=== PATIENT | female | born 1960 | race Caucasian/White ===

== ENCOUNTER 2017-10-26 08:25 | Emergency (ER) | END 2017-10-26 11:55 | disposition home or self-care (01) ==

== ENCOUNTER 2018-05-27 09:57 | Emergency (ER) | END 2018-05-27 12:20 | disposition home or self-care (01) ==

== ENCOUNTER 2018-08-02 18:11 | Emergency (ER) | END 2018-08-02 18:45 | disposition left against medical advice (07) ==

== ENCOUNTER 2018-09-07 18:09 | Emergency (ER) | payer OTHER ==
[~2018-09-07] VITALS: Ht 152.4 cm; Wt 84.9 kg
[~2018-09-07 18:09] MED LIST: ACET1TAB40 PO; ALBU8.5H8 INH; AZIT250T PO; CEPH-443 PO; IBUP-1542 PO; IBUP-40 PO; LORA-441 PO; PRED20TA PO
[2018-09-07 18:16] VITALS: Ht 152.4 cm; Wt 84.9 kg
[2018-09-07] MEDS ORDERED: AZIT250T PO (22:41)
[2018-09-07] MEDS ORDERED: ALBU8.5H8 INH (22:41)
[2018-09-07] MEDS ORDERED: PRED20TA PO (22:41)
[2018-09-07] MEDS ORDERED: D-ME473S2 PO (22:41)
[2018-09-07 22:59] VITALS: BP 133/62; PULSE 60; RESP 18
--- NOTE | 2018-09-07 23:03 | ERD ---
ER Documentation Chief Complaint Chief Complaint cough x4days HPI This is a 57-year-old female denies significant past medical history presents ED with complaints of cough times 4 days. Patient admits to sputum production, fatigue and chest discomfort with prolonged coughing spells. Denies body aches, shortness breath, trouble breathing, fevers, nausea, vomiting, diarrhea, constipation or other symptoms. No known drug allergies. ROS All systems reviewed and are negative except as per history of present illness. Medications Home Meds Active Scripts Azithromycin* (Zithromax*) 250 Mg Tablet, 250 MG PO .ZPACK DIRECTED, #6 TAB TAKE 500 MG (2 TABS) THE FIRST DAY THEN 250 MG (1 TAB) DAYS 2-5 Prov:DYANA DAVENPORT PA-C 09/07/18 Prednisone* (Prednisone*) 20 Mg Tab, 40 MG PO DAILY for 4 Days, TAB Prov:DYANA DAVENPORT PA-C 09/07/18 Albuterol Sulfate* (Proair HFA*) 8.5 Gm Hfa.aer.ad, 2 PUFF INH Q4, #1 INHALER Prov:DYANA DAVENPORT PA-C 09/07/18 Dextromethorphan Hb-Promethazine Hcl* (Promethazine DM* Syrup) 473 Ml Syrup, 5 ML PO Q6 PRN for COUGH for 5 Days, ML Prov:DYANA DAVENPORT PA-C 09/07/18 Lorazepam* (Ativan*) 0.5 Mg Tablet, 0.5 MG PO Q8, #10 TAB Prov:BLESSING LONGORIA MD 05/27/18 Prednisone* (Prednisone*) 20 Mg Tab, 40 MG PO DAILY for 5 Days, TAB Prov:RENITA ABREU MD 10/26/17 Albuterol Sulfate* (Proair HFA*) 8.5 Gm Hfa.aer.ad, 2 PUFF INH Q4, #1 INHALER Prov:RENITA ABREU MD 10/26/17 Azithromycin* (Zithromax*) 250 Mg Tablet, 250 MG PO .ZPACK DIRECTED, #6 TAB TAKE 500 MG (2 TABS) THE FIRST DAY THEN 250 MG (1 TAB) DAYS 2-5 Prov:RENITA ABREU MD 3/13/18 Ibuprofen* (Ibuprofen*) 600 Mg Tablet, 600 MG PO Q6 for PAIN, #20 TAB Prov:INDIANA CHAMPAGNE 09/30/15 Acetaminophen-Codeine* (Acetaminophen-Cod #3*) 300-30 Mg Tab, 1 TAB PO Q4H PRN for PAIN, #10 TAB Prov:RENITA ABREU MD 08/06/15 Ibuprofen* (Motrin*) 600 Mg Tab, 600 MG PO Q6, #14 TAB Prov:RENITA ABREU MD 08/06/15 Cephalexin* (Keflex*) 500 Mg Capsule, 500 MG PO QID for 7 Days, CAP Prov:RENITA ABREU MD 08/06/15 Reported Medications Ibuprofen (Advil) 200 Mg Tablet, 400 MG PO Q6 07/03/12 Allergies Allergies: Coded Allergies: No Known Allergy (Unverified , 10/26/17) PMhx/Soc Medical and Surgical Hx: pt denies Medical Hx, pt denies Surgical Hx History of Surgery: No Anesthesia Reaction: No Hx Neurological Disorder: No Hx Respiratory Disorders: No Hx Cardiac Disorders: No Hx Psychiatric Problems: No Hx Miscellaneous Medical Probl: No Hx Alcohol Use: No Hx Substance Use: No Hx Tobacco Use: No FmHx Family History: No diabetes Physical Exam Vitals Vital Signs Date Temp Pulse Resp B/P (MAP) Pulse Ox O2 O2 Flow FiO2 Time Delivery Rate 09/07/18 98.0 60 18 133/62 96 Room Air 22:59 (85) 09/07/18 98.2 72 20 128/68 100 18:16 (88) Physical Exam Physical Exam Vitals signs: Reviewed by me. General: Well developed, well nourished, in no acute distress. Patient is awake and alert. Head: Normocephalic, atraumatic. Eyes: Normal conjunctiva, Pupils PERRLA, EOM intact grossly ENT: Pharynx is clear, Moist mucous membranes, external ears, nose and mouth normal Neck: Supple, no masses, lymphadenopathy or JVD Respiratory: Clear to auscultation bilaterally with no wheezing rhonchi, rales, no distress, Cardiovascular: RRR, no murmurs, rubs, or gallops Back: No midline tenderness. No flank tenderness Neurologic: Alert and oriented, moving all extremities, normal speech, no focal weakness, no cerebellar signs. Normal mentation Skin: warm and dry, No rash Psych: Normal mood Procedures/MDM ER COURSE: The patient was stable throughout ED course. I kept the patient and/or family informed of laboratory and diagnostic imaging results throughout the emergency room course. The patient was promptly evaluated and a treatment plan was devised based on H&P and other data. This plan was discussed with the patient who agreed and had no further questions or concerns prior to discharge. MEDICAL DECISION MAKIN-year-old female presents ED with complaints of cough times 4 days. Symptoms are most likely consistent with acute bronchitis, Low suspicion for pneumonia, as lung sounds are clear at this time. Oxygen saturation is normal and patient does not have any respiratory distress. Advanced imaging is not indicated at this time. Low suspicion for other cardiopulmonary emergency such as pulmonary embolism, pneumothorax, tension pneumothorax, pleural effusion, pneumothorax, CHF, aortic aneurysm or other cardiopulmonary emergencies. No evidence of sepsis. Patient's vitals are stable he can be managed with close outpatient follow-up. Advised patient to follow-up with primary care in the next 48 hours. Return to ED with any worsening symptoms DISPOSITION PLAN: We discussed follow up with the patient's primary care doctor within 24 to 48 hours. Patient counseled regarding my diagnostic impression and care plan. Prior to discharge all questions answered. Pt agrees with treatment plan and understands strict return precautions. Precautionary instructions provided including instructions to return to the ER if not improving or for any worsening or changing symptoms or concerns. ExitCare instructions provided. Prior to discharge, patients vital signs have been reviewed SPECIALIST FOLLOW UP RECOMMENDED: None Patient has been advised to follow up with primary care in 1-2 days. Disclaimer: Inadvertent spelling and grammatical errors are likely due to EHR/dictation software use and do not reflect on the overall quality of patient care. Also, please note that the electronic time recorded on this note does not necessarily reflect the actual time of the patient encounter. Departure Diagnosis: Primary Impression: Acute bronchitis Bronchitis organism: unspecified organism Qualified Codes: J20.9 - Acute bronchitis, unspecified Condition: Stable Patient Instructions: Bronchitis With Wheezing (Adult) [facility] Usted se valladares hecho un examen mdico de control que le indica que no est en lashanda condicin que requiera tratamiento urgente en el Departamento de Emergencia. Un estudio ms profundo y el tratamiento de marlow condicin pueden esperar sin ningn riesgo hasta que ted sea atendida/o en el consultorio de marlow mdico o lashanda clnica. Es responsabilidad suya arreglar lashanda chester para el seguimiento del kaylynn. MANEJO DE CONDICIONES NO URGENTES EN EL FUTURO 1) Si usted tiene un mdico de atencin primaria: Usted debera llamar a marlow mdico de atencin primaria antes de venir al departamento de emergencia. Despus de las horas de consultorio, marlow doctor o marlow asociado/a est disponible por telfono. El mdico o enfermero de porter en el servicio telefnico puede asesorarle por kendy medio para atender el problema, o kaylynn contrario se puede programar lashanda chester. 2) Si usted no tiene un mdico de atencin primaria: Llame al mdico o clnica de referencia que aparece abajo cecy las horas de consultorio para hacer lashanda chester para que le vean. CLINICAS: [facility] [phone] [facility] [phone] [facility] [facility] [phone] [address] [facility]. [place] [id number] [phone] [facility]. [place] [id number] [phone] [facility]. [phone] [address] Additional Instructions: Paciente aconseja volver a Departamento de urgencias inmediatamente para sntomas nuevos o que empeoran . Paciente aconseja posteriores con el PCP en 1-2 carvajal . Paciente verbaliza la comprehensin y est de acuerdo con el tratamiento y el curso de accin. Si el paciente no tiene ninguna de atencin primaria [place] [address] [facility] [address] [place] [address] Paciente aconseja volver a Departamento de urgencias inmediatamente para sntomas nuevos o que empeoran . Paciente aconseja posteriores con el PCP en 1-2 carvajal . Paciente verbaliza la comprehensin y est de acuerdo con el tratamiento y el curso de accin. Si el paciente no tiene ninguna de atencin primaria [place] [address] [facility] [address] [place] [address] DYANA DAVENPORT PA-C Sep 07, 2018 23:03
== END 2018-09-07 23:02 | disposition home or self-care (01) ==
LOC: FTE 18:09
DX: J20.9 Acute bronchitis, unspecified (principal); R40.2252 Coma scale, best verbal response, oriented, at arrival to emergency department; R40.2362 Coma scale, best motor response, obeys commands, at arrival to emergency department; R40.2142 Coma scale, eyes open, spontaneous, at arrival to emergency department
CPT/HCPCS: 99283